=== PATIENT | female | born 1970 | race Caucasian/White ===

== ENCOUNTER 2018-11-14 15:29 | Emergency (ER) | payer OTHER ==
[~2018-11-14] VITALS: Ht 157.5 cm; Wt 78.4 kg
[2018-11-14 15:34] VITALS: BP 121/76
== END 2018-11-14 16:07 ==
LOC: ED 15:45
DX: L25.9 Unspecified contact dermatitis, unspecified cause (principal)
CPT/HCPCS: 99283